=== PATIENT | female | born 1975 | race Caucasian/White ===

== ENCOUNTER → 2017-01-12 | Outpatient (CLI) | payer OTHER ==
[~2017-01-12] MED LIST: CELEXA PO; FLEXERIL PO; IBUPROFEN200 M1 PO; LAMICTAL PO; NO MEDICATIONS; PHENERGAN25 MG PO; PREDNISONE PO; TRAZODONE PO; ULTRAM PO; VICODIN 5/1 TAB 5/50 PO
--- NOTE | ~2017-01-12 | CR21 ---
[facility] A Service of [facility] & [facility] RADIOLOGY TEXT RESULTS PATIENT: ABA WARD LOCATION: [facility] : 73 UNIT #: [id number] AGE: [address]: Tianna Shoemaker MD SEX: F ORDER DR: [id number] [facility] [address] [place], [place] [address] [id number] O MR#: [id number] Acc #: [id number] NAME: ABA WARD : 1975 SEX: F STUDY DATE/TIME: 01/12/2017 14:55 UNIT: [facility] ROOM: STUDY DESCRIPTION: CR Ankle Min 3 Views Rt Attending Physician: Tianna Shoemaker M.D. Referring Physician: Tianna Shoemaker M.D. Ordering Physician: Tianna Shoemaker M.D. Primary Care Physician: Yudith Elder A.P.R.N. MEDICAL IMAGING REPORT This report is preliminary unless electronic signature is present EXAM Right ankle, 3 views HISTORY Patient fell down the basement steps last night with right ankle pain. TECHNIQUE Three views of the ankle were obtained. FINDINGS AP, lateral, and oblique projections of the ankle show satisfactory integrity of the joint mortise with a smooth articular surface. There is no identifiable fracture, dislocation, or radiopaque foreign body. IMPRESSION Normal ankle. Dictated by... Ralph Yepez M.D. THIS IS AN ELECTRONICALLY VERIFIED REPORT Ralph Yepez M.D. at 01/16/2017 2:26 PM ZO/shelly TD: 01/12/2017 22:26 JOB #: [id number] MEDICAL IMAGING REPORT Page 1 of 1 COPY
--- NOTE | ~2017-01-12 | CR170 ---
[facility] A Service of [facility] & [facility] RADIOLOGY TEXT RESULTS PATIENT: ABA WARD LOCATION: [facility] : 73 UNIT #: [id number] AGE: [address]: Tianna Shoemaker MD SEX: F ORDER DR: [id number] [facility] [address] [place], [place] [address] [id number] O MR#: [id number] Acc #: [id number] NAME: ABA WARD : 1975 SEX: F STUDY DATE/TIME: 01/12/2017 14:56 UNIT: [facility] ROOM: STUDY DESCRIPTION: CR Knee 2 Views Rt Attending Physician: Tianna Shoemaker M.D. Referring Physician: Tianna Shoemaker M.D. Ordering Physician: Tianna Shoemaker M.D. Primary Care Physician: Yudith Elder A.P.R.N. MEDICAL IMAGING REPORT This report is preliminary unless electronic signature is present EXAM Right knee HISTORY Right knee pain after falling down steps last night. TECHNIQUE Two views of the knee were obtained. FINDINGS AP and lateral projection of the knee shows smooth articular anatomy without indication of fracture or dislocation at the major weight-bearing surface of the knee. There is no indication of radiopaque foreign body about the knee surface or joint effusion. IMPRESSION Normal knee. Dictated by... Ralph Yepez M.D. THIS IS AN ELECTRONICALLY VERIFIED REPORT Ralph Yepez M.D. at 01/16/2017 2:26 PM ZO/shelly TD: 01/12/2017 22:27 JOB #: [id number] MEDICAL IMAGING REPORT Page 1 of 1 COPY
--- NOTE | ~2017-01-12 | CR169 ---
[facility] A Service [facility] RADIOLOGY TEXT RESULTS PATIENT: ABA WARD LOCATION: [facility] : 73 UNIT #: [id number] AGE: [address]: Tianna Shoemaker MD SEX: F ORDER DR: [id number] [address] [place], [place] [address] [id number] O MR#: [id number] Acc #: [id number] NAME: ABA WARD. : 1975 SEX: F STUDY DATE/TIME: 01/12/2017 14:56 UNIT: [facility] ROOM: STUDY DESCRIPTION: CR Knee 2 Views Lt Attending Physician: Tianna Shoemaker M.D. Referring Physician: Tianna Shoemaker M.D. Ordering Physician: Tianna Shoemaker M.D. Primary Care Physician: Yudith Elder A.P.R.N. MEDICAL IMAGING REPORT This report is preliminary unless electronic signature is present EXAM Left knee HISTORY Left knee pain after falling down steps last night. TECHNIQUE 2 views of the knee were obtained. FINDINGS AP and lateral projection of the knee shows smooth articular anatomy without indication of fracture or dislocation at the major weight-bearing surface of the knee. There is no indication of radiopaque foreign body about the knee surface or joint effusion. IMPRESSION Normal knee. Dictated by... Ralph Yepez M.D. THIS IS AN ELECTRONICALLY VERIFIED REPORT Ralph Yepez M.D. at 01/16/2017 2:26 PM RLF/vivek TD: 01/12/2017 22:45 JOB #: [id number] MEDICAL IMAGING REPORT [facility] A Service [facility] RADIOLOGY TEXT RESULTS PATIENT: ABA WARD LOCATION: [facility] : 73 UNIT #: [id number] AGE: [address]: Tianna Shoemaker MD SEX: F ORDER DR: Page 1 of 1 COPY
== END | disposition home or self-care (01) ==
LOC: CRAD 14:22
DX: M25.571 Pain in right ankle and joints of right foot (principal); M25.561 Pain in right knee; M25.562 Pain in left knee
CPT/HCPCS: 73560; 73610